=== PATIENT | female | born 1980 | race American Indian/Alaskan Native ===

== ENCOUNTER 2020-03-08 09:11 | Emergency (ER) | payer OTHER ==
[2020-03-08 09:25] VITALS: BP 111/55
[2020-03-08] MEDS ORDERED: LIDOCAINE (1%) 10 MG/1 ML VIAL 20 ML MDV INFILTRATI ONE (11:24)
--- NOTE | 2020-03-08 11:29 | Emergency Department Report ---
ED Extremity Problem HPI - General Chief complaint: Extremity Problem,Nontraumatic Stated complaint: LT RING FINGER SWOLLEN Time Seen by Provider: 03/08/20 11:00 Source: patient Mode of arrival: Ambulatory Limitations: No Limitations - History of Present Illness Initial comments: Is a pleasant 39-year-old female presents the emergency department chief c omplaint of left fourth digit pain and swelling. Patient reports 6 days ago she grabbed a hot curling iron accidentally and has noticed some pain and swelling between the DIP and PIP joint with a pustule. Pain is an 8 out of 10 dull and throbbing. Intermittent. Past medical history of uterine fibroids. No current medications or known allergies to medications. - Related Data Previous Rx's Medication Instructions Recorded Last Taken Type Naproxen 500 mg PO BID #20 tablet 03/08/20 Unknown Rx Sulfamethoxazole/Trimethoprim 1 each PO BID #20 tablet 03/08/20 Unknown Rx [Bactrim DS TAB] Allergies Allergy/AdvReac Type Severity Reaction Status Date / Time No Known Allergies Allergy Unverified 03/08/20 09:22 ED Review of Systems ROS: Stated complaint: LT RING FINGER SWOLLEN Other details as noted in HPI Comment: All other systems reviewed and negative Constitutional: denies: chills, fever Eyes: denies: eye pain, eye discharge, vision change ENT: denies: ear pain, throat pain Respiratory: denies: cough, shortness of breath, wheezing Cardiovascular: denies: chest pain, palpitations Endocrine: no symptoms reported Gastrointestinal: denies: abdominal pain, nausea, diarrhea Genitourinary: denies: urgency, dysuria, discharge Musculoskeletal: denies: back pain, joint swelling, arthralgia Skin: as per HPI, lesions. denies: rash Neurological: denies: headache, weakness, paresthesias Psychiatric: denies: anxiety, depression Hematological/Lymphatic: denies: easy bleeding, easy bruising ED Past Medical Hx - Past Medical History Previous Medical History?: No Additional medical history: Uterine fibroids - Surgical History Past Surgical History?: Yes Additional Surgical History: Fibroids - Social History Smoking Status: Unknown if ever smoked Substance Use Type: None - Medications Home Medications: Home Medications Medication Instructions Recorded Confirmed Last Taken Type Naproxen 500 mg PO BID #20 tablet 03/08/20 Unknown Rx Sulfamethoxazole/Trimethoprim 1 each PO BID #20 tablet 03/08/20 Unknown Rx [Bactrim DS TAB] ED Physical Exam - General Limitations: No Limitations General appearance: alert, in no apparent distress - Head Head exam: Present: atraumatic, normocephalic - Eye Eye exam: Present: normal appearance, PERRL, EOMI Pupils: Present: normal accommodation - ENT ENT exam: Present: normal exam, normal orophraynx, mucous membranes moist - Neck Neck exam: Present: normal inspection, full ROM. Absent: tenderness, meningismus - Respiratory Respiratory exam: Present: normal lung sounds bilaterally. Absent: respiratory distress, wheezes, rales, rhonchi, stridor - Cardiovascular Cardiovascular Exam: Present: regular rate, normal rhythm, normal heart sounds. Absent: systolic murmur, diastolic murmur, rubs, gallop - GI/Abdominal GI/Abdominal exam: Present: soft, normal bowel sounds. Absent: distended, tenderness, guarding, rebound, rigid - Extremities Exam Extremities exam: Present: normal inspection, full ROM, tenderness, other (There is tenderness along the left fourth digit on the palmar side between the DIP and PIP joint with a 1 cm abscess. There is full active range of motion of the DIP PIP and MCP joint. There is no pain with passive extension. There is no circumferential swelling. No flexor posturing.) - Back Exam Back exam: Present: normal inspection, full ROM. Absent: tenderness, CVA tenderness (R), CVA tenderness (L) - Neurological Exam Neurological exam: Present: alert, oriented X3, CN II-XII intact, normal gait - Psychiatric Psychiatric exam: Present: normal affect, normal mood - Skin Skin exam: Present: warm, dry, intact, normal color. Absent: rash ED Course Vital Signs 03/08/20 09:24 Temperature 98 F Pulse Rate 88 Respiratory 16 Rate Blood Pressure 111/55 [Right] O2 Sat by Pulse 97 Oximetry - I & D Left Palm Finger Type of Procedure: Simple Site: Left ring finger Blade Size: 11 I & D Procedure: betadine prep Progress: The wound was thoroughly cleaned with Betadine prep. I injected 1% lidocaine to the base of both sides of the finger. Patient tolerated well. Digital block was achieved. I then used a 11 blade made incision over the area of most fluctuance and a large amount of purulent drainage was expressed. Patient tolerated this well. A approximately 5 cc of purulent drainage was expressed. Patient tolerated this well. Less than 5 mL of blood loss. ED Medical Decision Making - Medical Decision Making The patient's abscess was drained without complication. The patient had no signs of flexor tenosynovitis and was educated that if she develops flexor posturing, severe pain along the flexor surface, a uniform swelling such as a sausage digit, or severe pain with passive extension of the digit she should return to the emergency department. None of these were present during my exam. I will treat the patient with antibiotics and recommended outpatient follow-up with her primary care doctor for wound check next 2 to 3 days. Patient instructed to return to the emergency department she develops any change or worsening symptoms. She verbalized understand the diagnosis, treatment plan and follow-up instructions and all of her questions were answered. - Differential Diagnosis Abscess, abrasion, puncture Critical care attestation.: If time is entered above; I have spent that time in minutes in the direct care o f this critically ill patient, excluding procedure time. ED Disposition Clinical Impression: Abscess of finger Qualifiers: Laterality: left Qualified Code(s): L02.512 - Cutaneous abscess of left hand Disposition: DC-01 TO HOME OR SELFCARE Is pt being admited?: No Condition: Stable Instructions: Skin Abscess Prescriptions: Sulfamethoxazole/Trimethoprim [Bactrim DS TAB] 1 each PO BID #20 tablet Naproxen 500 mg PO BID #20 tablet Referrals: PRIMARY CARE, [Primary Care Provider] - 3-5 Days Forms: Work/School Release Form(ED) Time of Disposition: 11:42
== END 2020-03-08 11:45 | disposition home or self-care (01) ==
LOC: ED 09:11
DX: L02.512 Cutaneous abscess of left hand (principal); Z98.890 Other specified postprocedural states; Z79.899 Other long term (current) drug therapy
CPT/HCPCS: 99282